=== PATIENT | female | born 1980 | race Caucasian/White ===

== ENCOUNTER → 2019-08-25 | Outpatient (CLI) | payer OTHER ==
[~2019-08-25] MED LIST: BUPR150ER; CIPR100 PO; HYDCOR1TC TOP; LAMO100; NORETHTP; PRED10 PO; RXPHEN200 PO; RXPROM25 PO; RXSULTRIDS
[2019-08-25 16:23] LABS: BASOPHILS ABSOLUTE AUTO 0.04 K/mm3 (0.00-0.23); BASOPHILS PERCENT AUTO 0 % (0-2); EOSINOPHILS ABSOLUTE AUTO 0.01 K/mm3 (0.00-0.68); EOSINOPHILS PERCENT AUTO 0 % (0-6); Hematocrit 38.6 % (33.0-51.0); Hemoglobin 12.9 g/dL (11.5-16.0); IMMATURE GRAN ABSOLUTE AUTO 0.02 K/mm3 (0.00-0.10); IMMATURE GRAN PERCENT AUTO 0 % (0-1); LYMPHOCYTES ABSOLUTE AUTO 1.21 K/mm3 (0.84-5.20); LYMPHOCYTES PERCENT AUTO 13 % (21-46); MONOCYTES PERCENT AUTO 4 % (4-13); Mean Corpuscular HGB 30.6 pg (26.0-34.0); Mean Corpuscular HGB Conc 33.4 g/dL (31.5-36.5); Mean Corpuscular Volume 92 fL (80-100); Mean Platelet Volume 9.5 fL (9.1-12.4); NEUTROPHILS ABSOLUTE AUTO 7.51 K/mm3 (1.96-9.15); NEUTROPHILS PERCENT AUTO 82 % (41-73); Platelet Count 317 K/mm3 (150-400); RDW Coefficient Variation 13.6 % (11.7-14.2); RDW Standard Deviation 45.4 fL (35.1-46.3); Red Blood Cell Count 4.22 M/mm3 (3.80-5.20); White Blood Cell Count 9.19 K/mm3 (4.00-11.30)
[2019-08-25 16:34] LABS: Anion Gap 7 mmol/L (6-16); Blood Urea Nitrogen 9 mg/dL (8-24); Bun/Creatinine Ratio 13.6 (12.0-20.0); CO2, Blood 26 mmol/L (21-32); Calcium, Blood 9.2 mg/dL (8.5-10.1); Chloride, Blood 102 mmol/L (98-108); Creatinine, Blood 0.66 mg/dL (0.40-1.00); Glomerular Filtration Rate >60 (60-); Glucose, Blood 98 mg/dL (70-99); Potassium, Blood 3.9 mmol/L (3.5-5.5); Sodium, Blood 135 mmol/L (136-145)
[2019-08-25 16:55] LABS: Troponin I <0.017 ng/mL (0.000-0.040)
== END | disposition home or self-care (01) ==
LOC: LAB EV 16:17 → LAB SHORT 16:17
PROVIDERS: Physician Assistant Surgical
DX: R00.2 Palpitations (principal)
CPT/HCPCS: 80048; 84484; 85025

== ENCOUNTER → 2019-12-18 | Outpatient (CLI) | payer OTHER | END | disposition home or self-care (01) | LOC: LAB SHORT 09:37 → PLD 09:37 | DX: N85.8 Other specified noninflammatory disorders of uterus (principal) | CPT/HCPCS: 88305 ==

== ENCOUNTER → 2020-01-08 | Outpatient (CLI) | payer OTHER | END | disposition home or self-care (01) | LOC: LAB SHORT 07:54 → LAB EV 07:54 | DX: M79.671 Pain in right foot (principal) | CPT/HCPCS: 84550 ==

== ENCOUNTER 2020-03-06 07:41 | Day surgery (SDC) | payer OTHER ==
[~2020-03-06] VITALS: Ht 154.9 cm; Wt 82.3 kg
--- NOTE | 2020-03-06 08:09 | NUR ---
History, Chart, Medications and Allergies reviewed before start of procedure. Lungs clear T/O to Auscultation. Patient confirms NPO status and agrees with scheduled surgery. Pre-Op teaching done. Pt verbalizes understanding. Patient States Post-Procedure ride home has been arranged. Patient reports completing Chlorhexadine shower X2 prior to admission to hospital.
--- NOTE | 2020-03-06 08:34 | NUR ---
"DAY SURGERY RN | ASSUMED CARE FROM A[facility]"
--- NOTE | 2020-03-06 08:46 | NUR ---
"DAY SURGERY RN | REPORT TO DAYANNA DUM[facility]"
--- NOTE | 2020-03-06 10:14 | NUR ---
03/06/20 1014 Patricia Grayson [place] PLACED OVER SMALL RED PUSTULE ON LEFT ABDOMEN PRIOR TO PREP PER DR. ORANTES
--- NOTE | 2020-03-06 12:28 | NUR ---
PT ARRIVED TO UNIT AT APROX 1200 FROM PACU S/P JETT RIDER. LAP SITES X'S 4 WITH DERBABOND C/D/I. TONY PAD WITH NO DRAINAGE PRESENT. PT ABLE TO STAND ANB AMBULATE SBA TO BED. RATES PAIN 4/10 AT THIS TIME. POST OP VS MONITORING.
--- NOTE | 2020-03-06 13:49 | NUR ---
DISCHARGE PT DISCHARGED HOME FROM UNIT AT APROX 1315. PT MET ALL DISCHARGE CRITERIA AND POST-OP VS STABLE. PAIN MANAGED. PT GIVEN PRINTED DISCHARGE INSTRUCTIONS AND VERBALIZED UNDERSTANDING OF THESE INSTRUCTIONS. IV'S WERE REMOVED. WHEELCHAIR TO CAR.
== END 2020-03-06 13:15 | disposition home or self-care (01) ==
LOC: ORSCMMR 07:41 → SURS 12:14 → ORSCMMR 13:15
PROVIDERS: Obstetrics & Gynecology
PROC: 0UT74ZZ Resection of Bilateral Fallopian Tubes, Percutaneous Endoscopic Approach (ICD-10-PCS; principal; 2020-03-06 09:00)
PROC: 0UT04ZZ Resection of Right Ovary, Percutaneous Endoscopic Approach (ICD-10-PCS; principal; 2020-03-06 09:00)
PROC: 8E0W4CZ Robotic Assisted Procedure of Trunk Region, Percutaneous Endoscopic Approach (ICD-10-PCS; principal; 2020-03-06 09:00)
PROC: 0UT94ZZ Resection of Uterus, Percutaneous Endoscopic Approach (ICD-10-PCS; principal; 2020-03-06 09:00)
DX: N92.0 Excessive and frequent menstruation with regular cycle (principal); N94.6 Dysmenorrhea, unspecified; N83.292 Other ovarian cyst, left side; D25.9 Leiomyoma of uterus, unspecified; N73.6 Female pelvic peritoneal adhesions (postinfective); N80.1 Endometriosis of ovary; F41.8 Other specified anxiety disorders; E66.9 Obesity, unspecified; Z68.34 Body mass index [BMI] 34.0-34.9, adult; Z79.899 Other long term (current) drug therapy
CPT/HCPCS: 58571; S2900; 84703; 86850; 86900; 86901; 88307; 88342; J0690; J1100; J1885; J2250; J2370; J2405; J2704; J3010; J7120

== ENCOUNTER 2020-05-28 01:58 | Emergency (ER) | payer OTHER ==
[~2020-05-28] VITALS: Ht 154.9 cm; Wt 77.1 kg
[2020-05-28 02:54] LABS: BASOPHILS ABSOLUTE AUTO 0.01 K/mm3 (0.00-0.23); BASOPHILS PERCENT AUTO 0 % (0-2); EOSINOPHILS PERCENT AUTO 0 % (0-6); Hematocrit 36.6 % (33.0-51.0); Hemoglobin 11.7 g/dL (11.5-16.0); IMMATURE GRAN ABSOLUTE AUTO 0.01 K/mm3 (0.00-0.10); IMMATURE GRAN PERCENT AUTO 0 % (0-1); LYMPHOCYTES ABSOLUTE AUTO 1.63 K/mm3 (0.84-5.20); LYMPHOCYTES PERCENT AUTO 27 % (21-46); MONOCYTES ABSOLUTE AUTO 0.68 K/mm3 (0.16-1.47); MONOCYTES PERCENT AUTO 11 % (4-13); Mean Corpuscular HGB 29.5 pg (26.0-34.0); Mean Corpuscular Volume 92 fL (80-100); Mean Platelet Volume 9.6 fL (9.1-12.4); NEUTROPHILS ABSOLUTE AUTO 3.69 K/mm3 (1.96-9.15); NEUTROPHILS PERCENT AUTO 61 % (41-73); Platelet Count 293 K/mm3 (150-400); RDW Coefficient Variation 13.4 % (11.7-14.2); RDW Standard Deviation 46.1 fL (35.1-46.3); Red Blood Cell Count 3.97 M/mm3 (3.80-5.20); White Blood Cell Count 6.02 K/mm3 (4.00-11.30)
== END 2020-05-28 04:39 | disposition home or self-care (01) ==
LOC: ER 01:58
PROVIDERS: Emergency Medicine
DX: R20.2 Paresthesia of skin (principal); M79.602 Pain in left arm; M79.601 Pain in right arm; F41.9 Anxiety disorder, unspecified; F32.9 Major depressive disorder, single episode, unspecified; F98.8 Other specified behavioral and emotional disorders with onset usually occurring in childhood and adolescence; F17.200 Nicotine dependence, unspecified, uncomplicated; Z88.2 Allergy status to sulfonamides; Z88.8 Allergy status to other drugs, medicaments and biological substances; Z79.899 Other long term (current) drug therapy
CPT/HCPCS: 36415; 85025; 96374; 96375; 99283-25; J1630; J1885

== ENCOUNTER 2020-09-16 13:31 | Emergency (ER) | payer OTHER ==
[~2020-09-16] VITALS: Ht 154.9 cm; Wt 77.4 kg
[2020-09-16 14:11] LABS: BASOPHILS PERCENT AUTO 0 % (0-2); EOSINOPHILS PERCENT AUTO 0 % (0-6); Hemoglobin 14.2 g/dL (11.5-16.0); IMMATURE GRAN ABSOLUTE AUTO 0.01 K/mm3 (0.00-0.10); IMMATURE GRAN PERCENT AUTO 0 % (0-1); LYMPHOCYTES ABSOLUTE AUTO 1.49 K/mm3 (0.84-5.20); LYMPHOCYTES PERCENT AUTO 26 % (21-46); MONOCYTES ABSOLUTE AUTO 0.33 K/mm3 (0.16-1.47); MONOCYTES PERCENT AUTO 6 % (4-13); Mean Corpuscular HGB 31.2 pg (26.0-34.0); Mean Corpuscular Volume 95 fL (80-100); Mean Platelet Volume 9.5 fL (9.1-12.4); NEUTROPHILS ABSOLUTE AUTO 3.91 K/mm3 (1.96-9.15); NEUTROPHILS PERCENT AUTO 68 % (41-73); Platelet Count 280 K/mm3 (150-400); RDW Coefficient Variation 11.9 % (11.7-14.2); RDW Standard Deviation 41.2 fL (35.1-46.3); Red Blood Cell Count 4.55 M/mm3 (3.80-5.20); White Blood Cell Count 5.74 K/mm3 (4.00-11.30)
[2020-09-16 14:30] LABS: Alanine Aminotransfer (ALT/SGP 38 U/L (12-78); Albumin, Blood 4.1 g/dL (3.4-5.0); Alk Phos 76 U/L (50-136); Anion Gap 5 mmol/L (6-16); Aspartate Aminotrans (AST/SGOT 20 U/L (12-37); Bilirubin, Total 0.3 mg/dL (0.1-1.0); Blood Urea Nitrogen 10 mg/dL (8-24); Bun/Creatinine Ratio 12.3 (12.0-20.0); CO2, Blood 28 mmol/L (21-32); Calcium, Blood 9.3 mg/dL (8.5-10.1); Chloride, Blood 110 mmol/L (98-108); Creatinine, Blood 0.82 mg/dL (0.40-1.00); Glomerular Filtration Rate >60 (60-); Glucose, Blood 86 mg/dL (70-99); Potassium, Blood 3.7 mmol/L (3.5-5.5); Sodium, Blood 143 mmol/L (136-145); Total Protein, Blood 8.1 g/dL (6.4-8.2)
[2020-09-16 15:15] LABS: International Normalized Ratio 0.96; Prothrombin Time Results 10.3 Sec (9.7-11.5)
[2020-09-16] MEDS ORDERED: PEPCID40 MG PO (15:54)
[2020-09-16] MEDS ORDERED: ONDA4ODT SL (15:54)
[2020-09-17 07:09] LABS: HBSAG SCREEN Negative (Negative); HEP A AB, IGM Negative (Negative); HEP B CORE AB, IGM Negative (Negative); HEP C VIRUS AB <0.1 (0.0-0.9)
== END 2020-09-16 16:21 | disposition home or self-care (01) ==
LOC: ER 13:31
PROVIDERS: Emergency Medicine; Physician Assistant
DX: R10.30 Lower abdominal pain, unspecified (principal); Z88.2 Allergy status to sulfonamides; Z79.899 Other long term (current) drug therapy; Z87.891 Personal history of nicotine dependence
CPT/HCPCS: 36415; 80053; 80074; 83690; 85025; 85610; 85730; 96374; 99284-25; A9270; J7120

== ENCOUNTER 2020-10-27 20:02 | Inpatient (IN) | payer OTHER ==
[~2020-10-27] VITALS: Ht 175.3 cm; Wt 77.6 kg
[~2020-10-27 20:02] MED LIST changes: +ONDA4ODT SL; +PEPCID40 MG PO
[2020-10-27 20:24] LABS: BASOPHILS PERCENT AUTO 0 % (0-2); EOSINOPHILS PERCENT AUTO 0 % (0-6); Hematocrit 41.8 % (33.0-51.0); Hemoglobin 14.4 g/dL (11.5-16.0); IMMATURE GRAN ABSOLUTE AUTO 0.04 K/mm3 (0.00-0.10); IMMATURE GRAN PERCENT AUTO 0 % (0-1); LYMPHOCYTES PERCENT AUTO 12 % (21-46); MONOCYTES ABSOLUTE AUTO 0.64 K/mm3 (0.16-1.47); MONOCYTES PERCENT AUTO 6 % (4-13); Mean Corpuscular HGB 31.2 pg (26.0-34.0); Mean Corpuscular HGB Conc 34.4 g/dL (31.5-36.5); Mean Corpuscular Volume 91 fL (80-100); Mean Platelet Volume 9.6 fL (9.1-12.4); NEUTROPHILS ABSOLUTE AUTO 8.79 K/mm3 (1.96-9.15); NEUTROPHILS PERCENT AUTO 82 % (41-73); Platelet Count 275 K/mm3 (150-400); RDW Coefficient Variation 11.9 % (11.7-14.2); RDW Standard Deviation 39.4 fL (35.1-46.3); Red Blood Cell Count 4.62 M/mm3 (3.80-5.20); White Blood Cell Count 10.77 K/mm3 (4.00-11.30)
[2020-10-27 20:44] LABS: Alanine Aminotransfer (ALT/SGP 31 U/L (12-78); Albumin, Blood 4.3 g/dL (3.4-5.0); Albumin/Globulin Ratio 1.3 (0.8-1.8); Alk Phos 57 U/L (50-136); Anion Gap 6 mmol/L (6-16); Aspartate Aminotrans (AST/SGOT 18 U/L (12-37); Bilirubin, Total 0.6 mg/dL (0.1-1.0); Blood Urea Nitrogen 11 mg/dL (8-24); Bun/Creatinine Ratio 13.5 (12.0-20.0); CO2, Blood 26 mmol/L (21-32); CPK Creatine Kinase 136 U/L (26-193); Calcium, Blood 9.3 mg/dL (8.5-10.1); Chloride, Blood 109 mmol/L (98-108); Creatinine, Blood 0.81 mg/dL (0.40-1.00); Ethanol (Alcohol), Blood, Med <3 mg/dL; Globulin, Blood 3.2 g/dL (2.2-4.0); Glomerular Filtration Rate >60 (60-); Glucose, Blood 104 mg/dL (70-99); Potassium, Blood 3.6 mmol/L (3.5-5.5); Salicylate <1.7 mg/dL (2.8-20.0); Sodium, Blood 141 mmol/L (136-145); Total Protein, Blood 7.5 g/dL (6.4-8.2)
[2020-10-27 20:47] LABS: Acetaminophen, Random <2.0 ug/mL (10.0-30.0)
[2020-10-27 20:54] LABS: Source, Urine Catheter
[2020-10-27 20:58] LABS: Appearance, Urine Clear (Clear); Bilirubin, Urine Neg (Neg); Blood, Urine Neg (Neg); Color, Urine Amber (P-Yellow); Glucose Qualitative, Urine Neg (Neg); Ketones, Urine 1+ (Neg); Leukocyte Esterase, Urine 1+ (Neg); Nitrite, Urine Neg (Neg); Protein, Urine 2+ (Neg); Specific Gravity, Urine 1.025 (1.003-1.022); Urobilinogen, Urine NORM (Normal)
[2020-10-27 21:05] LABS: Bacteria Many /hpf; Calcium Oxalate Crystals Few /hpf; Mucus Mod (0-Heavy); Squamous Epithelial Cells Few /hpf (Few); White Blood Cells, Urine 0-2 /hpf (0-5)
[2020-10-27 21:18] LABS: U Amphetamine Screen DETECTED; U Barbituate Screen Not Detected; U Benzodiazapine Screen Not Detected; U Buprenorphine Screen Not Detected; U Cannabinoids Screen Not Detected; U Cocaine Screen Not Detected; U Methadone Screen Not Detected; U Methamphetamine Screen DETECTED; U Opiates Screen Not Detected; U Oxycodone Screen Not Detected; U Phencyclidine Screen Not Detected; U Propoxyphene Screen Not Detected
[2020-10-27 21:21] LABS: PCO2 Arterial 30.1 mmHg (35-45); PO2 Arterial 143 mmHg (80-100); pH Blood Arterial 7.49 (7.35-7.45)
[2020-10-28 03:29] LABS: BASOPHILS PERCENT AUTO 0 % (0-2); EOSINOPHILS PERCENT AUTO 0 % (0-6); Hemoglobin 12.5 g/dL (11.5-16.0); IMMATURE GRAN ABSOLUTE AUTO 0.01 K/mm3 (0.00-0.10); IMMATURE GRAN PERCENT AUTO 0 % (0-1); LYMPHOCYTES ABSOLUTE AUTO 2.15 K/mm3 (0.84-5.20); LYMPHOCYTES PERCENT AUTO 26 % (21-46); MONOCYTES ABSOLUTE AUTO 0.65 K/mm3 (0.16-1.47); MONOCYTES PERCENT AUTO 8 % (4-13); Mean Corpuscular HGB 31.5 pg (26.0-34.0); Mean Corpuscular HGB Conc 34.7 g/dL (31.5-36.5); Mean Corpuscular Volume 91 fL (80-100); Mean Platelet Volume 9.5 fL (9.1-12.4); NEUTROPHILS ABSOLUTE AUTO 5.59 K/mm3 (1.96-9.15); NEUTROPHILS PERCENT AUTO 67 % (41-73); Platelet Count 219 K/mm3 (150-400); RDW Coefficient Variation 11.9 % (11.7-14.2); RDW Standard Deviation 39.5 fL (35.1-46.3); Red Blood Cell Count 3.97 M/mm3 (3.80-5.20)
[2020-10-28 03:47] LABS: Alanine Aminotransfer (ALT/SGP 22 U/L (12-78); Albumin, Blood 3.4 g/dL (3.4-5.0); Albumin/Globulin Ratio 1.2 (0.8-1.8); Alk Phos 47 U/L (50-136); Anion Gap 7 mmol/L (6-16); Aspartate Aminotrans (AST/SGOT 19 U/L (12-37); Bilirubin, Total 0.5 mg/dL (0.1-1.0); Blood Urea Nitrogen 10 mg/dL (8-24); Bun/Creatinine Ratio 12.7 (12.0-20.0); CO2, Blood 23 mmol/L (21-32); CPK Creatine Kinase 209 U/L (26-193); Calcium, Blood 8.4 mg/dL (8.5-10.1); Chloride, Blood 114 mmol/L (98-108); Creatinine, Blood 0.79 mg/dL (0.40-1.00); Globulin, Blood 2.9 g/dL (2.2-4.0); Glomerular Filtration Rate >60 (60-); Glucose, Blood 71 mg/dL (70-99); Potassium, Blood 3.5 mmol/L (3.5-5.5); Sodium, Blood 144 mmol/L (136-145); Total Protein, Blood 6.3 g/dL (6.4-8.2)
--- NOTE | 2020-10-28 05:39 | NUR ---
SHIFT SUMMARY PATIENT ARRIVED TO ICU, ADMIT DONE TO EXTENT FAMILY ABLE TO HELP AT THIS TIME. WHEN I CALLED AT 22:40 LAST NIGHT MOM WAS GETTIGN READY FOR BED, DAY SHIFT WILL NEED TO FINISH. PT. WOKE UP DURING LAB DRAWS, INCREASED PROPOFOL, NOW RELAXED, TOLERATING VENT. ASSESSMENT IS CHARTED. VSS. WILL CONTINUE TO MONITOR.
--- NOTE | 2020-10-28 08:30 | NUR ---
ASSESSMENT- PT SEDATED WITH PROPOFOL AT 45 MCG/KG/MIN-INCREASED TO 55 MCG/KG/MIN, AGITATED WITH ANY STIMULUS, REACHES FOR TUBE, EXTUBATION RISK. BILATERAL WRIST RESTRAINTS ON. REPOSITIONED FOR COMFORT, LINEN CHANGE DONE. BYRNE STRONGLY, NO RESPONSE TO COMMANDS. OPENS EYES, PUPILS SLUGGISH, REACTIVE. LUNGS CLEAR, TOLERATING VENT SETTINGS, STABLE VS. NSR. UO VIA STRONG. OGT TO LIS.
--- NOTE | 2020-10-28 09:31 | NUR ---
DR. TILLEY HERE-ASSESSED PT. VS UNCHANGED. TOLERATING VENT
--- NOTE | 2020-10-28 09:58 | NUR ---
POISON CONTROL CALLED-UPDATED WITH EKG, VS.
--- NOTE | 2020-10-28 11:01 | NUR ---
UPDATE TO PT'S MOM-QUESTIONS ANSWERED. WILL BE HERE THIS AFTERNOON
--- NOTE | 2020-10-28 14:02 | NUR ---
PT AWAKENS TO NAME, ABLE TO NOD HEAD APPROPRIATELY, FOLLOW SOME DIRECTIONS. WILL ATTEMPT SBT
--- NOTE | 2020-10-28 14:58 | NUR ---
WEAN TRIAL, PROPOFOL TITRATED OFF. RESP RATE QUICKLY UP TO 40'S, UNABLE TO FOLLOW DIRECTIONS, ANXIOUS, AGITATED, UNABLE TO TOLERATE TRIAL. SEDATION RESTARTED AND BACK TO VENT SETTINGS WITH STABLE VS. DR. TILLEY HERE-UPDATED
--- NOTE | 2020-10-28 18:40 | NUR ---
PT REMAINS ON VENT, TOLERATING VENT SETTINGS. QUIET AT REST, AWAKENS TO NAME, AGITATES EASILY, ATTEMPTS TO PULL AT LINES. CAMERA ON FOR ADDITIONAL MONITORING. VSS. UO LOW. DR. TILLYE HERE-UPDATED. PT'S MOM HERE-QUESTIONS ANSWERED, WILL CALL BACK WITH LIST OF MEDICATIONS AND TO GIVE HISTORY.
--- NOTE | 2020-10-28 19:35 | NUR ---
7.5 ETT, 22 CM AT TEETH
[2020-10-29 03:39] LABS: BASOPHILS ABSOLUTE AUTO 0.01 K/mm3 (0.00-0.23); BASOPHILS PERCENT AUTO 0 % (0-2); EOSINOPHILS PERCENT AUTO 0 % (0-6); Hematocrit 30.6 % (33.0-51.0); Hemoglobin 10.5 g/dL (11.5-16.0); IMMATURE GRAN ABSOLUTE AUTO 0.01 K/mm3 (0.00-0.10); IMMATURE GRAN PERCENT AUTO 0 % (0-1); LYMPHOCYTES ABSOLUTE AUTO 1.45 K/mm3 (0.84-5.20); LYMPHOCYTES PERCENT AUTO 27 % (21-46); MONOCYTES ABSOLUTE AUTO 0.48 K/mm3 (0.16-1.47); MONOCYTES PERCENT AUTO 9 % (4-13); Mean Corpuscular HGB 31.6 pg (26.0-34.0); Mean Corpuscular HGB Conc 34.3 g/dL (31.5-36.5); Mean Corpuscular Volume 92 fL (80-100); NEUTROPHILS ABSOLUTE AUTO 3.47 K/mm3 (1.96-9.15); NEUTROPHILS PERCENT AUTO 64 % (41-73); Platelet Count 168 K/mm3 (150-400); RDW Coefficient Variation 12.6 % (11.7-14.2); RDW Standard Deviation 42.8 fL (35.1-46.3); Red Blood Cell Count 3.32 M/mm3 (3.80-5.20); White Blood Cell Count 5.42 K/mm3 (4.00-11.30)
[2020-10-29 03:55] LABS: Anion Gap 6 mmol/L (6-16); Blood Urea Nitrogen 9 mg/dL (8-24); Bun/Creatinine Ratio 10.4 (12.0-20.0); CO2, Blood 21 mmol/L (21-32); Calcium, Blood 7.7 mg/dL (8.5-10.1); Chloride, Blood 118 mmol/L (98-108); Creatinine, Blood 0.86 mg/dL (0.40-1.00); Glomerular Filtration Rate >60 (60-); Glucose, Blood 60 mg/dL (70-99); Magnesium, Blood 2.2 mg/dL (1.6-2.4); Phosphorus, Blood 2.1 mg/dL (2.5-4.9); Potassium, Blood 3.9 mmol/L (3.5-5.5); Sodium, Blood 145 mmol/L (136-145)
--- NOTE | 2020-10-29 06:18 | NUR ---
SHIFT SUMMARY PATIENT SLEPT WELL TRHOUGH NIGHT. HAD A FEW INSTANCES OF WAKING UP THRU SEDATION, HAD WILD LOOK ABOUT HER, THRASHED ABOUT FOR 10 SECONDS, THEN BACK TO SLEEP. EARLY IN SHIFT GOT VERY WILD, REACHING FOR ETT, INCONSOLABLE, THRASHING, IV LEAKING, HAD TO START 2 NEW IVs, PROPOFOL WAS NOT INFUSING. RESEDATED ONCE PROPOFOL IN GOOD IV LINE. ASSESSMENT IS CHARTED. VSS. WILL CONTINUE TO MONITOR.
--- NOTE | 2020-10-29 07:30 | NUR ---
PT REMAINS INTUBATED AND SEDATED ON PROPOFOL @ 70 MCG/KG/MIN. PT RESPONDS TO STIMULI BY GRIMACING AND PULLING ON WRIST RESTRAINTS. PT SITS UP IN BED AND MOVES HER LEGS ABOUT THE BED. NOT FOLLOWING COMMANDS. ECG SHOWS SR. BP STABLE. LUNGS COARSE THROUGH OUT. SCANT YELLOW ETT SECRETIONS. MAINTAINS SATS>90% ON FIO2 21%. OGT TO LIS WITH SMALL AMOUNT OF BROWN, LIQUID DRAINAGE. STRONG TO BSD WITH SCANT AMOUNT OF DARK, GREEN URINE TO UROMETER. ANTICIPATE WEANING TRIAL LATER THIS AM WHEN HEAD OF ETHICS AND COMPLIANCE DOES ROUNDS.
--- NOTE | 2020-10-29 09:15 | NUR ---
SEDATION VACATION INITIATED.
--- NOTE | 2020-10-29 09:45 | NUR ---
DR. TILLEY AT BEDSIDE. PT EXTUBATED-SATS>90% ON RA. PT TEARFUL. PT STATES "MY THROAT HURTS." PT FOLLOWS COMMANDS AT TIMES, BUT NOT CONSITENTLY. PT NOT ABLE TO PARTICIPATE IN SUICIDE ASSESSMENT AT THIS TIME. ROOM MITIGATION UPDATED. CIVIL RIGHT PROVIDES. PT DECLINE TO SIGN. PT PLACED ON INVOOLUNTARY HOLD AND 1:1 SITTER INITIATED.
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
--- NOTE | 2020-10-29 12:27 | NUR ---
[facility] AND YINKA HERE TO EVALUATE PT. YINKA TO SEE IF PT ABLE TO CONTRACT FOR SAFETY.
--- NOTE | 2020-10-29 13:33 | NUR ---
PT GRIMACING AND APPEARS AGITATED. PT STATES THAT WHEN SHE CLOSES HER EYES, SHE SEES "BLACK AND A BIG, PURPLE RING." PT REMINDED THAT SHE IS SAFE. PT ENCOURAGED TO REST. ASSISTED PT TO POSITION OF COMFORT ON RIGHT SIDE.
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
--- NOTE | 2020-10-29 14:59 | NUR ---
DR. THOMAS HERE TO SEE PT. PT MOTHER ALSO HERE WELL. DR. THOMAS SPEAKING WITH PT MOTHER TO OBTAIN PAST MEDICAL HISTORY.
--- NOTE | 2020-10-29 15:33 | NUR ---
PT COOPERATIVE WITH DR. THOMAS. SUICIDE RISK-REASSESSMENT DONE. PT DENIES SI/HI. PT MODERATE RISK AT THIS TIME. ASSISTED OOB TO CHAIR WITH STANDBY ASSIST. TOLERATED WELL. WILL INITIATE CLEAR LIQUID DIET AND ADVANCE TOLERATED.
--- NOTE | 2020-10-29 17:55 | NUR ---
PT SITTING UP IN THE CHAIR WATCHING TV & SIPPING ON CLEAR LIQUIDS WITHOUT NOTED DISTRESS. PT HAS BEEN COOPERATIVE WITH CARE THIS AFTERNOON AND CONTINUES TO DENY SUICIDAL IDEATION.
--- NOTE | 2020-10-30 02:09 | NUR ---
ASSUMPTION OF CARE REPORT RECV'D FROM TIM ALLEN. PT RESTING QUIETLY IN BED AT THIS TIME. WILL CONTINUE TO MONITOR.
[2020-10-30 03:41] LABS: BASOPHILS PERCENT AUTO 0 % (0-2); EOSINOPHILS PERCENT AUTO 0 % (0-6); Hematocrit 33.6 % (33.0-51.0); Hemoglobin 11.4 g/dL (11.5-16.0); IMMATURE GRAN ABSOLUTE AUTO 0.01 K/mm3 (0.00-0.10); IMMATURE GRAN PERCENT AUTO 0 % (0-1); LYMPHOCYTES ABSOLUTE AUTO 1.13 K/mm3 (0.84-5.20); LYMPHOCYTES PERCENT AUTO 23 % (21-46); MONOCYTES ABSOLUTE AUTO 0.41 K/mm3 (0.16-1.47); MONOCYTES PERCENT AUTO 8 % (4-13); Mean Corpuscular HGB 31.4 pg (26.0-34.0); Mean Corpuscular HGB Conc 33.9 g/dL (31.5-36.5); Mean Corpuscular Volume 93 fL (80-100); Mean Platelet Volume 9.7 fL (9.1-12.4); NEUTROPHILS ABSOLUTE AUTO 3.37 K/mm3 (1.96-9.15); NEUTROPHILS PERCENT AUTO 69 % (41-73); Platelet Count 183 K/mm3 (150-400); RDW Coefficient Variation 12.2 % (11.7-14.2); Red Blood Cell Count 3.63 M/mm3 (3.80-5.20); White Blood Cell Count 4.92 K/mm3 (4.00-11.30)
[2020-10-30 03:56] LABS: Anion Gap 4 mmol/L (6-16); Blood Urea Nitrogen 3 mg/dL (8-24); Bun/Creatinine Ratio 4.6 (12.0-20.0); CO2, Blood 23 mmol/L (21-32); Calcium, Blood 8.1 mg/dL (8.5-10.1); Chloride, Blood 117 mmol/L (98-108); Creatinine, Blood 0.66 mg/dL (0.40-1.00); Glomerular Filtration Rate >60 (60-); Glucose, Blood 75 mg/dL (70-99); Phosphorus, Blood 3.4 mg/dL (2.5-4.9); Potassium, Blood 4.2 mmol/L (3.5-5.5); Sodium, Blood 144 mmol/L (136-145)
--- NOTE | 2020-10-30 06:09 | NUR ---
SHIFT SUMMARY PT A&OX4. DENIES SI. ABLE TO SLEEP MOST OF THE NIGHT. PT TEARFUL AT TIMES BUT WOULD NOT STATE WHY. VSS. STRONG CATH DRAINING LARGE AMOUNT OF LIGHT COLORED CLEAR URINE. NO SIGNIFICANT CHANGES, WILL CONTINUE TO MONITOR.
--- NOTE | 2020-10-30 08:07 | NUR ---
PT A&OX4. REPORTS 04/24 HEADACHE THAT SHE STATES IS "A MIGRAINE." PT STATES THAT SHE TAKE NAPROXEN AT HOME FOR HEADACHES-WILL DISCUSS WITH PCP. PT REFUSING BREAKFAST AT THIS TIME DUE TO HEADACHE. PT WITHDRAWN, BUT COOPERATIVE. DENIE SUICIDAL/HOMICIDAL IDEATION. PT STILL MODERATE RISK SUICIDE PRECAUTIONS.
--- NOTE | 2020-10-30 11:56 | NUR ---
PT SITTING UP IN CHAIR SPEAKING WITH DR. PANCHAL. PT CONTINUES TO REPORT H/A. NO SUICIDAL/HOMICIDAL IDEATION.
--- NOTE | 2020-10-30 12:10 | NUR ---
PT REPORTS CONTINUED H/A. MED WITH TYLENOL 500 MG PO-SEE EMAR. PT REPORTS FEELING CONSTIPATED-MED WITH [facility]. PT HAS CONTRACTED FOR SAFETY AND CONTINUES TO DENY SUICIDAL/HOMICIDAL IDEATION.
--- NOTE | 2020-10-30 14:00 | NUR ---
PT REPORTS CONTINUED HEADACHE. SHE WAS OFFERED NAPROXEN, BUT CURRENTLY REFUSING. PT TEARFUL WITH REMOVAL OF PIV AND STRONG CATHETER. TONY CARE DONE AND PT OFFERED ADULT PULL UP. PT BEGAN TO SOB AND STATED "DON'T YOU HAVE CLOTHES? I JUST WANT CLOTHES!" PT ASSISTED BACK TO BED-MINIMAL ASSIST. PT TURNED ONTO HER RIGHT SIDE AND APPEARED TO FALL ASLEEP.
--- NOTE | 2020-10-30 15:06 | NUR ---
DR. THOMAS HERE TO SEE PT. SUICIDE PRECAUTIONS/HOLD DROPPED. DR. THOMAS SPOKE WITH DR. PANCHAL. PT TO BE DISCHARGED SOON "MEDICALLY STABLE."
[2020-10-30] MEDS ORDERED: DESVENLAFAXINE 100 MG PO (15:56)
[2020-10-30] MEDS ORDERED: GABA300 PO (15:57)
[2020-10-30] MEDS ORDERED: MIRALAX17 G6 PO (16:28)
--- NOTE | 2020-10-30 16:44 | NUR ---
10/30/20- per Dr. Martin, pt has been cleared by psychiatry and will be d/c today. Met with pt who was very soft spoken, room was dark and pt laying in bed. Discussed her d/c and reviewed [facility]ILT letter. She stated that she is ok following up with hospitalist or Hannah. Pt stated that boyfriend was going to get her clothes. She did identify that she didn't want to go back to her parent's house and boyfriend lives in his car. Discussed options for housing and provided her with community resources such as [employer] application and community handout with shelters, food bank and other resources. -radha
--- NOTE | 2020-10-30 16:45 | NUR ---
REVIEWED DISCHARGE INSTRUCTIONS WITH PT. PT VERBALIZES UNDERSTANDING. AWAITING TRANSPORTATION.
--- NOTE | 2020-10-30 18:30 | NUR ---
PT DISCHARGE TO HOME. OUT VIA WHEELCHAIR-ESCORTED BY ANNALISE CAMPEBLL AND PT S/O [place]. PT LEFT DISCHARGE INSTRUCTIONS ON THE BEDSIDE TABLE.
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
== END 2020-10-30 18:30 | disposition home or self-care (01) | DRG 917 ==
LOC: ER 20:02 → ICUW 21:16 → ICUE 21:16
PROVIDERS: Emergency Medicine; Internal Medicine Critical Care Medicine; Nurse Practitioner Acute Care; ADMIT Internal Medicine
PROC: 0BH18EZ Insertion of Endotracheal Airway into Trachea, Via Natural or Artificial Opening Endoscopic (ICD-10-PCS; principal; 2020-10-27)
PROC: 5A1945Z Respiratory Ventilation, 24-96 Consecutive Hours (ICD-10-PCS; 2020-10-27)
DX: T42.6X2A Poisoning by other antiepileptic and sedative-hypnotic drugs, intentional self-harm, initial encounter (principal); J96.01 Acute respiratory failure with hypoxia; G92 Toxic encephalopathy; F41.9 Anxiety disorder, unspecified; F98.8 Other specified behavioral and emotional disorders with onset usually occurring in childhood and adolescence; F31.9 Bipolar disorder, unspecified; F15.10 Other stimulant abuse, uncomplicated; G89.29 Other chronic pain; M25.552 Pain in left hip; M25.551 Pain in right hip; K59.09 Other constipation; R45.1 Restlessness and agitation; Z88.2 Allergy status to sulfonamides; Z88.8 Allergy status to other drugs, medicaments and biological substances; Z90.710 Acquired absence of both cervix and uterus; Z98.890 Other specified postprocedural states; Z79.899 Other long term (current) drug therapy; Z71.51 Drug abuse counseling and surveillance of drug abuser
CPT/HCPCS: 31500; 36415; 36600; 51702; 71045; 80048; 80053; 81001; 81025; 82140; 82550; 82803; 82947; 83605; 83735; 84100; 85025; 87086; 93005; 93010; 94002; 94003; 96374-59; 99291-25; A9270; G0480; J0330; J1650; J2405; J2704; J3480; J7030; J7060; J7120

== ENCOUNTER 2021-01-25 19:53 | Emergency (ER) | payer OTHER ==
[~2021-01-25] VITALS: Ht 154.9 cm; Wt 71.2 kg
[~2021-01-25 19:53] MED LIST changes: +DESVENLAFAXINE 100 MG PO; +GABA300 PO; +MIRALAX17 G6 PO
[2021-01-25 20:41] LABS: BASOPHILS ABSOLUTE AUTO 0.01 K/mm3 (0.00-0.23); BASOPHILS PERCENT AUTO 0 % (0-2); EOSINOPHILS ABSOLUTE AUTO 0.01 K/mm3 (0.00-0.68); EOSINOPHILS PERCENT AUTO 0 % (0-6); Hematocrit 40.3 % (33.0-51.0); Hemoglobin 13.8 g/dL (11.5-16.0); IMMATURE GRAN ABSOLUTE AUTO 0.02 K/mm3 (0.00-0.10); IMMATURE GRAN PERCENT AUTO 0 % (0-1); LYMPHOCYTES ABSOLUTE AUTO 1.95 K/mm3 (0.84-5.20); LYMPHOCYTES PERCENT AUTO 27 % (21-46); MONOCYTES ABSOLUTE AUTO 0.58 K/mm3 (0.16-1.47); MONOCYTES PERCENT AUTO 8 % (4-13); Mean Corpuscular HGB 32.1 pg (26.0-34.0); Mean Corpuscular HGB Conc 34.2 g/dL (31.5-36.5); Mean Corpuscular Volume 94 fL (80-100); Mean Platelet Volume 9.7 fL (9.1-12.4); NEUTROPHILS ABSOLUTE AUTO 4.66 K/mm3 (1.96-9.15); NEUTROPHILS PERCENT AUTO 65 % (41-73); Platelet Count 314 K/mm3 (150-400); RDW Coefficient Variation 12.1 % (11.7-14.2); RDW Standard Deviation 42.2 fL (35.1-46.3); White Blood Cell Count 7.23 K/mm3 (4.00-11.30)
[2021-01-25 21:01] LABS: Alanine Aminotransfer (ALT/SGP 25 U/L (12-78); Albumin, Blood 4.3 g/dL (3.4-5.0); Albumin/Globulin Ratio 1.1 (0.8-1.8); Alk Phos 73 U/L (50-136); Anion Gap 2 mmol/L (6-16); Aspartate Aminotrans (AST/SGOT 14 U/L (12-37); Bilirubin, Total 0.5 mg/dL (0.1-1.0); Blood Urea Nitrogen 9 mg/dL (8-24); Bun/Creatinine Ratio 10.9 (12.0-20.0); CO2, Blood 30 mmol/L (21-32); Calcium, Blood 9.5 mg/dL (8.5-10.1); Chloride, Blood 109 mmol/L (98-108); Creatinine, Blood 0.82 mg/dL (0.40-1.00); Globulin, Blood 3.8 g/dL (2.2-4.0); Glomerular Filtration Rate >60 (60-); Glucose, Blood 89 mg/dL (70-99); Potassium, Blood 3.9 mmol/L (3.5-5.5); Sodium, Blood 141 mmol/L (136-145); Total Protein, Blood 8.1 g/dL (6.4-8.2); Troponin I <0.015 ng/mL (0.000-0.040)
== END 2021-01-25 23:14 | disposition home or self-care (01) ==
LOC: ER 19:53
PROVIDERS: Physician Assistant
DX: Z00.00 Encounter for general adult medical examination without abnormal findings (principal); Z88.2 Allergy status to sulfonamides; Z88.8 Allergy status to other drugs, medicaments and biological substances; Z79.899 Other long term (current) drug therapy
CPT/HCPCS: 36415; 71046; 80053; 84484; 85025; 93005; 93010; 99285-25

== ENCOUNTER 2022-04-07 14:54 | Emergency (ER) | payer OTHER | END 2022-04-07 19:55 | disposition left against medical advice (07) | LOC: ER 14:54 | DX: R20.0 Anesthesia of skin (principal); R07.89 Other chest pain; Z53.21 Procedure and treatment not carried out due to patient leaving prior to being seen by health care provider | CPT/HCPCS: 93005; 93010 ==

== ENCOUNTER 2023-04-26 16:43 | Emergency (ER) | payer OTHER ==
[~2023-04-26] VITALS: Ht 162.6 cm; Wt 79.4 kg
[~2023-04-26 16:43] MED LIST changes: +ALBU90OI INH; +ESCI10 PO; +ESTRADIOL1 EAC2 TOP
[2023-04-26 17:05] VITALS: BP 120/102
[2023-04-26 18:54] LABS: Source, Urine Clean Catch
[2023-04-26 18:58] LABS: Appearance, Urine Clear (Clear); Bilirubin, Urine Neg (Neg); Blood, Urine 3+ (Neg); Color, Urine Yellow (P-Yellow); Glucose Qualitative, Urine Neg (Neg); Ketones, Urine 3+ (Neg); Leukocyte Esterase, Urine Neg (Neg); Nitrite, Urine Neg (Neg); Protein, Urine Neg (Neg); Specific Gravity, Urine 1.015 (1.003-1.022); Urobilinogen, Urine NORM (Normal)
[2023-04-26 19:11] LABS: Bacteria Many /hpf; Red Blood Cells, Urine 0-2 /hpf (0-2); Squamous Epithelial Cells Few /hpf (Few)
[2023-04-26 19:13] LABS: U Amphetamine Screen Not Detected; U Barbituate Screen Not Detected; U Benzodiazapine Screen Not Detected; U Buprenorphine Screen Not Detected; U Cannabinoids Screen Not Detected; U Cocaine Screen Not Detected; U Methadone Screen Not Detected; U Methamphetamine Screen Not Detected; U Opiates Screen Not Detected; U Oxycodone Screen Not Detected; U Phencyclidine Screen Not Detected; U Propoxyphene Screen Not Detected
== END 2023-04-26 20:23 | disposition left against medical advice (07) ==
LOC: ER 16:43
PROVIDERS: Student in an Organized Health Care Education/Training Program
DX: F31.5 Bipolar disorder, current episode depressed, severe, with psychotic features (principal); Z88.2 Allergy status to sulfonamides; Z88.8 Allergy status to other drugs, medicaments and biological substances; Z91.018 Allergy to other foods; Z79.899 Other long term (current) drug therapy
CPT/HCPCS: 81001; 87086; 99285

== ENCOUNTER 2023-06-08 16:02 | Emergency (ER) | payer OTHER ==
[~2023-06-08] VITALS: Ht 154.9 cm; Wt 75.3 kg
[2023-06-08 16:18] VITALS: BP 136/86
[2023-06-08 16:36] LABS: BASOPHILS ABSOLUTE AUTO 0.04 K/mm3 (0.00-0.23); BASOPHILS PERCENT AUTO 1 % (0-2); EOSINOPHILS ABSOLUTE AUTO 0.04 K/mm3 (0.00-0.68); EOSINOPHILS PERCENT AUTO 1 % (0-6); Hematocrit 45.1 % (33.0-51.0); Hemoglobin 14.8 g/dL (11.5-16.0); IMMATURE GRAN ABSOLUTE AUTO 0.02 K/mm3 (0.00-0.10); IMMATURE GRAN PERCENT AUTO 0 % (0-1); LYMPHOCYTES ABSOLUTE AUTO 1.74 K/mm3 (0.84-5.20); LYMPHOCYTES PERCENT AUTO 23 % (21-46); MONOCYTES ABSOLUTE AUTO 0.47 K/mm3 (0.16-1.47); MONOCYTES PERCENT AUTO 6 % (4-13); Mean Corpuscular HGB 32.1 pg (26.0-34.0); Mean Corpuscular HGB Conc 32.8 g/dL (31.5-36.5); Mean Corpuscular Volume 98 fL (80-100); Mean Platelet Volume 9.6 fL (9.1-12.4); NEUTROPHILS PERCENT AUTO 70 % (41-73); Platelet Count 365 K/mm3 (150-400); RDW Coefficient Variation 12.5 % (11.7-14.2); Red Blood Cell Count 4.61 M/mm3 (3.80-5.20); White Blood Cell Count 7.71 K/mm3 (4.00-11.30)
[2023-06-08 16:56] LABS: Albumin, Blood 4.2 g/dL (3.4-5.0); Bilirubin, Total 0.3 mg/dL (0.1-1.0); Bun/Creatinine Ratio 18.2 (12.0-20.0); Calcium, Blood 9.7 mg/dL (8.5-10.1); Creatinine, Blood 0.88 mg/dL (0.40-1.00); Globulin, Blood 4.2 g/dL (2.2-4.0); Total Protein, Blood 8.4 g/dL (6.4-8.2)
[2023-06-08] MEDS ORDERED: ONDA4ODT MM (17:16)
== END 2023-06-08 17:45 | disposition home or self-care (01) ==
LOC: ER 16:02
PROVIDERS: Physician Assistant
DX: L03.115 Cellulitis of right lower limb (principal); B95.62 Methicillin resistant Staphylococcus aureus infection as the cause of diseases classified elsewhere; R11.0 Nausea; F31.9 Bipolar disorder, unspecified
CPT/HCPCS: 80053; 83605; 85025; 99283